=== PATIENT | female | born 1955 | race Caucasian/White ===

== ENCOUNTER 2020-01-29 14:10 | Inpatient (IN) | payer OTHER, SELFPAY ==
[~2020-01-29] VITALS: Ht 165.1 cm; Wt 76.2 kg
[~2020-01-29 14:10] MED LIST: GABA300C PO; METF1000 PO
[2020-01-29 14:20] VITALS: BP 145/81
--- NOTE | 2020-01-29 14:22 | NUR ---
PATIENT AMBULATED TO ER BED 01
--- NOTE | 2020-01-29 14:30 | NUR ---
PT C/O PRODUCTIVE COUGH, CHEST CONGESTION, GENERALIZED WEAKNESS, BODY ACHES, FATIGUE, N/V/D, ABDOMINAL PAIN, SOB FOR 8 DAYS. DENIES CLOSELY CONTACTED WITH COVID. STATES HAVING 9/10 ABDOMINAL/HEAD PAIN AT THIS TIME. PMH: DM, HTN
[2020-01-29] MEDS ORDERED: LEVOFLOXACIN 500 MG/D5W PREMIX 100 ML IV ONE (14:50)
[2020-01-29] MEDS ORDERED: KETOROLAC 30 MG/ML VIAL IVP ONE (14:50)
[2020-01-29] MEDS ORDERED: NACL 0.9% 1,000 ML IV SCH (14:50)
[2020-01-29] MEDS ORDERED: ONDANSETRON 4 MG/2 ML VIAL IVP ONE (14:50)
--- NOTE | 2020-01-29 15:10 | NUR ---
LABS/UA COLLECTED AND SENT TO LAB
--- NOTE | 2020-01-29 15:20 | NUR ---
DAVID AND PCR COLLECTED AND SENT TO LAB
--- NOTE | 2020-01-29 16:00 | NUR ---
PT AMBULATED TO BEDSIDE COMMODE. BRIDGE OPERATOR/PULSE OX/2L NC IN PLACE. PT PLACED BACK IN BED, LOCKED AND IN LOWEST POSITION. SIDE RAILS X1.
[2020-01-29 16:04] LABS: HEMATOCRIT 48.5 % (36-48); HEMOGLOBIN 16.2 g/dL (12.0-16.0); MEAN CORPUSCULAR HEMOGLOBIN 29 pg (27-31); MEAN CORPUSCULAR HGB CONC 34 g/dL (33-37); MEAN CORPUSCULAR VOLUME 86.1 fL (80-94); MONOCYTES % (AUTO) 6.7 % (1.7-9.3); NEUTROPHILS % (AUTO) 78.7 % (42.2-75.2); PLATELET COUNT (AUTO) 215 K/uL (140-450); RED BLOOD CELL COUNT(AUTO) 5.63 MIL/uL (4.20-5.40); RED CELL DISTRIBUTION WIDTH 14.1 % (11.6-13.7); WHITE BLOOD COUNT (AUTO) 7.1 K/uL (4.8-10.8)
[2020-01-29 16:05] LABS: BASOPHILS % (AUTO) 0.2 % (0.0-2.0); EOSINOPHILS % (AUTO) 0.4 % (0.0-4.0); LYMPHOCYTES # (AUTO) 0.9 K/uL (2.5-16.5); MONOCYTES # (AUTO) 0.5 K/uL (0.8-1.0); NEUTROPHILS # (AUTO) 5.7 K/uL (1.8-7.7)
[2020-01-29] MEDS: LEVOFLOXACIN 500 MG/D5W PREMIX 100 ML IV SCH (16:50)
[2020-01-29] MEDS ORDERED: MAGNESIUM OXIDE 400 MG TAB PO PRN (16:50)
[2020-01-29] MEDS ORDERED: MAG SULF 2000 MG/WATER PREMIX 50 ML IV PRN (16:50)
[2020-01-29] MEDS ORDERED: POTASSIUM CHLORIDE 10 MEQ TABER PO PRN (16:50)
[2020-01-29] MEDS ORDERED: KCL 20 MEQ/WATER INJ PREMIX 200 ML IV PRN (16:50)
[2020-01-29] MEDS ORDERED: MORPHINE SULFATE 4 MG/ML SYR IVP PRN (16:50)
[2020-01-29] MEDS ORDERED: MORPHINE SULFATE 4 MG/ML SYR ONE (16:57)
[2020-01-29] MEDS ORDERED: DEXTROSE 50% 50 ML SYR IVP PRN (17:00)
[2020-01-29] MEDS ORDERED: MORPHINE SULFATE 4 MG/ML SYR IVP ONE (17:00)
--- NOTE | 2020-01-29 17:00 | NUR ---
PT STATES THAT SHE IS HAVING 8/10 DOMINGO AND DIFFUSE ABDOMINAL PAIN AND SHE NEEDS FURTHER PAIN MANAGEMENT. MD MADE AWARE.
[2020-01-29] MEDS: NACL 0.9% 1,000 ML IV SCH (17:19)
[2020-01-29 17:31] LABS: APPEARANCE,URINE YELLOW (CLEAR); BILIRUBIN,URINE NEGATIVE (NEGATIVE); BLOOD, URINE NEGATIVE (NEGATIVE); COLOR,URINE HAZY (YELLOW); LEUKOCYTE ESTERASE ,URINE NEGATIVE (NEGATIVE); NITRITE, URINE NEGATIVE (NEGATIVE); PH,URINE 5.5 (5.0-9.0); UGLUCOSE NEGATIVE (NEGATIVE)
[2020-01-29 17:36] LABS: ANION GAP 9.9 (8-16); CARBON DIOXIDE 28.9 mmol/L (21-32); CREATININE 0.8 mg/dL (0.6-1.3); POTASSIUM 3.8 mmol/L (3.5-5.1)
[2020-01-29 17:42] LABS: ALBUMIN 2.9 g/dL (3.4-5.0); TOTAL BILIRUBIN 0.5 mg/dL (0.0-1.0)
--- NOTE | 2020-01-29 18:20 | NUR ---
PT EATING DINNER SITTING UP IN BED. CALL LIGHT LEFT WITHIN REACH.
--- NOTE | 2020-01-29 19:19 | NUR ---
REPORT RECEIVED FROM LUIS ANG FOR CONTINUATION OF CARE.
--- NOTE | 2020-01-29 19:20 | NUR ---
REPORT GIVEN TO LUIS QUARLES. TRANSFER OF CARE AT THIS TIME.
--- NOTE | 2020-01-29 19:51 | NUR ---
CALLED LUIS BATRES TO GIVE REPORT FOR TRANSFER OF CARE TO THE TELE FLOOR
[2020-01-29] MEDS ORDERED: LISI-420 PO (19:57)
--- NOTE | 2020-01-29 20:20 | NUR ---
Patient will be admitted to care of DR. MEJIAS. Admited to TELEMETRY. Will go to room 102B. Belongings list completed. Report to LUIS BATRES.
--- NOTE | 2020-01-29 20:20 | NUR ---
RECEIVED REPORT FROM ER NURSE, WILLAM. PT ON TELE, AOX4 ON O2 3L N/C. NO S/S RESPIRATORY DISTRESS. HAS NAUSEA AND ABD PAIN 8/10. WILL MEDICATE WITH PRN PAIN AND NAUSEA MEDICATION. IV SITE 18G LAC, PATENT AND INTACT. SKIN WARM DRY INTACT. BOWEL SOUNDS ACTIVE. SAFETY PRECAUTIONS IN PLACE. DROPLET PRECAUTION IN PLACE. CALL LIGHT WITHIN REACH. WILL CONTINUE TO MONITOR. VS: TEMP 98.3 RR 24 O2 SAT 96% BP 102/66 HR 74
[2020-01-29 20:30] VITALS: BP 102/66
[2020-01-29] MEDS: ONDANSETRON 4 MG/2 ML VIAL IVP PRN (20:57)
--- NOTE | 2020-01-29 20:57 | NUR ---
PT C/O NAUSEA. ADMINISTERED PRN ZOFRAN. TOLERATED WELL. WILL CONTINUE TO MONITOR
--- NOTE | 2020-01-29 21:00 | NUR ---
ORIENTED PT TO HOSPITAL AND ROOM. PT AMBULATED TO TOILET AND BACK TO BED WITH STEADY GAIT AND STANDBY ASSIST. PT TOLERATED WELL. WILL CONTINUE TO MONITOR
[2020-01-29] MEDS: BLOOD GLUCOSE MONITORING 1 DEV DEV FS SCH (21:02)
[2020-01-29] MEDS: INSULIN LISPRO SLIDING SCALE 100 UNITS/ML VIAL SUBQ PRN (21:12)
--- NOTE | 2020-01-29 21:15 | NUR ---
ADMINISTERED 2 UNITS INSULIN FOR PT BLOOD SUGAR 180 PER SLIDING SCALE. TOLERATED WELL. WILL CONTINUE TO MONITOR
--- NOTE | 2020-01-29 23:30 | NUR ---
PT ASLEEP IN BED. RESPIRATIONS EVEN AND UNLABORED. NO DISTRESS NOTED. WILL CONTINUE TO MONITOR
[2020-01-29] MEDS: ACETAMINOPHEN 325 MG TAB PO PRN (23:42)
[2020-01-30 01:15] VITALS: BP 118/65
--- NOTE | 2020-01-30 02:49 | NUR ---
PT AWAKE IN BED. DENIES PAIN. DENIES NAUSEA. NO DISTRESS NOTED. WILL CONTINUE TO MONITOR
[2020-01-30 04:00] VITALS: BP 125/69
[2020-01-30] MEDS: NACL 0.9% 1,000 ML IV SCH ×2 (05:24→18:09)
[2020-01-30] MEDS: BLOOD GLUCOSE MONITORING 1 DEV DEV FS SCH ×4 (05:46→20:24)
[2020-01-30] MEDS: INSULIN LISPRO SLIDING SCALE 100 UNITS/ML VIAL SUBQ PRN ×4 (06:12→20:27)
--- NOTE | 2020-01-30 06:26 | NUR ---
ADMINISTERED 2 UNITS INSULIN FOR PT BLOOD SUGAR 154, TOLERATED WELL
--- NOTE | 2020-01-30 07:10 | NUR ---
ENDORSED PT TO DAY RN FOR CONTINUITY OF CARE. PT IS IN STABLE CONDITION
--- NOTE | 2020-01-30 07:15 | NUR ---
RECEIVED PT FROM ELECTRICAL LOGGING OPERATOR NURSE, PT IS RESTING IN BED, NC @ 3L, IV NOTED OT LAC 18G @ 80ML/HR, CONTINENT, SAFETY AND FALL PRECAUTIONS IN PLACE, WILL CONTINUE TO MONITOR.
[2020-01-30 08:00] VITALS: BP 140/87
[2020-01-30 08:23] LABS: ALBUMIN 2.1 g/dL (3.4-5.0); ANION GAP 13.1 (8-16); CARBON DIOXIDE 24.7 mmol/L (21-32); CREATININE 0.6 mg/dL (0.6-1.3); MAGNESIUM 1.9 mg/dL (1.8-2.4); POTASSIUM 3.8 mmol/L (3.5-5.1); TOTAL BILIRUBIN 0.4 mg/dL (0.0-1.0)
[2020-01-30] MEDS: DEXAMETHASONE 4 MG/ML VIAL IVP SCH (08:46)
[2020-01-30] MEDS: DOCUSATE SODIUM 100 MG GELCAP PO SCH (08:46)
[2020-01-30] MEDS: ENOXAPARIN 40 MG/0.4 ML SYR SUBQ SCH (08:50)
[2020-01-30 09:08] LABS: BASOPHILS % (AUTO) 0.2 % (0.0-2.0); EOSINOPHILS % (AUTO) 0.5 % (0.0-4.0); HEMOGLOBIN 14.1 g/dL (12.0-16.0); LYMPHOCYTES # (AUTO) 0.8 K/uL (2.5-16.5); LYMPHOCYTES % (AUTO) 10.4 % (20.5-51.1); MEAN CORPUSCULAR HEMOGLOBIN 29 pg (27-31); MEAN CORPUSCULAR HGB CONC 34 g/dL (33-37); MEAN CORPUSCULAR VOLUME 87.6 fL (80-94); MONOCYTES # (AUTO) 0.4 K/uL (0.8-1.0); MONOCYTES % (AUTO) 4.4 % (1.7-9.3); NEUTROPHILS # (AUTO) 6.9 K/uL (1.8-7.7); NEUTROPHILS % (AUTO) 84.5 % (42.2-75.2); PLATELET COUNT (AUTO) 166 K/uL (140-450); RED BLOOD CELL COUNT(AUTO) 4.79 MIL/uL (4.20-5.40); RED CELL DISTRIBUTION WIDTH 14.3 % (11.6-13.7); WHITE BLOOD COUNT (AUTO) 8.1 K/uL (4.8-10.8)
[2020-01-30] MEDS: ACETAMINOPHEN 325 MG TAB PO PRN (09:16)
[2020-01-30] MEDS: ONDANSETRON 4 MG/2 ML VIAL IVP PRN (09:17)
--- NOTE | 2020-01-30 09:17 | NUR ---
PT WAS GIVEN THE SCHEDULED AM MEDICATIONS, VIA ORAL, SUBQ AND IV PUSH, NAUSEA MEDICATION WAS GIVEN WELL, TOLERATED, V/S CHECKED, PT WAS ASSISTED TO BATHROOM AND BACK TO BED, SERVED BREAKFAST TRAY, ALL NEEDS ARE MET AT THIS TIME, WILL CONTINUE TO MONITOR PT.
--- NOTE | 2020-01-30 11:40 | NUR ---
2 UNITS INSULIN ADMINISTERED FOR 199 BS LEVEL, PT IS RESTING IN BED, CALL LIGHT WITHIN REACH, PT REPORTS IMPROVEMENT IN NAUSEA AND HEADACHE, WILL CONTINUE TO MONITOR.
[2020-01-30 12:00] VITALS: BP 121/62
--- NOTE | 2020-01-30 13:15 | NUR ---
PT IS RESTING IN BED, NO SIGNS OF DISTRESS NOTED, WILL CONTINUE TO MONITOR.
--- NOTE | 2020-01-30 14:50 | NUR ---
HELPED PT TO THE RESTROOM, LOOSE BROWN STOOL NOTED, PT STATED SHE HAD NOT USED THE RESTROOM FOR 3 DAYS DUE TO LACK OF MOTIVATION TO EAT, PT IS NOW BACK IN BED, 2 SUGAR FREE JELLOS WERE PROVIDED TO PER PT REQUEST, NO SIGNS OF DISTRESS NOTED, WILL CONTINUE TO MONITOR.
[2020-01-30 16:00] VITALS: BP 141/74
--- NOTE | 2020-01-30 16:10 | NUR ---
PT WAS ASSISTED TO BATHROOM AND BACK TO BED, MADE A BOWEL MOVEMENT, INSULIN 6 UNITS WAS GIVEN TO PT ON THE RT UA FOR BLOOD GLUCOSE OF 265, ALL NEEDS ARE MET AND WILL MONITOR PT.
[2020-01-30] MEDS: LEVOFLOXACIN 500 MG/D5W PREMIX 100 ML IV SCH (16:29)
--- NOTE | 2020-01-30 16:30 | NUR ---
SCHEDULED ANTIBIOTIC ADMINISTERED, PT HAD ANOTHER LOOSE BOWEL MOVEMENT, NO SIGNS OF DISTRESS NOTED, WILL CONTINUE TO MONITOR.
--- NOTE | 2020-01-30 18:10 | NUR ---
PT IS AWAKE IN BED, ADMINISTERED NEW NS @ 80ML/HR, NO SIGNS OF DISTRESS, WILL CONTINUE TO MONITOR PT.
--- NOTE | 2020-01-30 18:15 | NUR ---
PT WAS ASSISTED TO GO TO THE BATHROOM AND BACK TO BED, PT IS WEAK BUT DENIES PAIN,DINNER TRAY WAS SERVED,WILL MONITOR PT
--- NOTE | 2020-01-30 19:10 | NUR ---
ENDORSED PT TO SENIOR SUPPORT ENGINEER NURSE FOR CONTINUITY OF CARE.
--- NOTE | 2020-01-30 19:11 | NUR ---
RECEIVED PT FROM DAY RN, PT IS ROMANSH SPEAKING. AAOX4 AMBULATORY WITH ASSIST. ABLE TO MAKE NEEDS KNOWN. PT IS RESTING IN BED. RESPIRATIONS ARE EQUAL AND UNLABORED ON NC @ 4L, IV NOTED OT LAC 18G NS INFUSING AT 80ML/HR, CONTINENT, SKIN IS INTACT. ON DROPLET ISOLATION FOR COVID + WAITING FOR PCR RESULTS. SAFETY AND FALL PRECAUTIONS IN PLACE, POC DISCUSSED WITH PT. WILL CONTINUE TO MONITOR.
--- NOTE | 2020-01-30 20:24 | NUR ---
VITAL SIGNS ARE STABLE. BLOOD SUGAR 245 ADMINISTERED INSULIN PER SLIDING SCALE. POC DISCUSSED WITH PT. MED EDUCATION GIVEN. CALL LIGHT IS WITHIN REACH.
[2020-01-30 20:49] VITALS: BP 122/51
--- NOTE | 2020-01-30 22:00 | NUR ---
ROUNDS MADE. PT IS SLEEPING COMFORTABLY IN BED WITH EYES CLOSED. CHEST RISE AND FALL NOTED. CALL LIGHT IS WITHIN REACH.
--- NOTE | 2020-01-31 | NUR ---
ROUNDS MADE. PT RESTING COMFORTABLY IN BED NO S/S OF DISTRESS. CALL LIGHT IS WITHIN REACH.
--- NOTE | 2020-01-31 01:59 | NUR ---
PT IS SLEEPING COMFORTABLY IN BED WITH EYES CLOSED. CHEST RISE AND FALL NOTED. CALL LIGHT IS WITHIN REACH.
--- NOTE | 2020-01-31 03:15 | NUR ---
ASSISTED PT TO BATHROOM. PT TOLERATED WELL. CALL LIGHT IS WITHIN REACH.
--- NOTE | 2020-01-31 04:00 | NUR ---
VITAL SIGNS ARE WITHIN NORMAL LIMITS. ALL SAFETY MEASURES ARE IN PLACE. CALL LIGHT IS WITHIN REACH.
[2020-01-31] MEDS ORDERED: remdesivir COMMUNICATION ORDER 1 EA MISC MC PRN (04:05)
[2020-01-31 05:13] VITALS: BP 130/74
--- NOTE | 2020-01-31 05:30 | NUR ---
OBTAINED CONSENT FOR CONVALESCENT PLASMA. EDUCATED PT ON REASON AND POSSIBLE ADVERSE REACTIONS. PT VERBALIZED UNDERSTANDING. DENIES ANY FURTHER CONCERNS. CONSENT IN CHART.
[2020-01-31] MEDS: BLOOD GLUCOSE MONITORING 1 DEV DEV FS SCH ×4 (06:07→21:09)
[2020-01-31] MEDS: NACL 0.9% 1,000 ML IV SCH ×2 (06:07→18:52)
[2020-01-31] MEDS: INSULIN LISPRO SLIDING SCALE 100 UNITS/ML VIAL SUBQ PRN ×4 (06:08→21:08)
--- NOTE | 2020-01-31 06:08 | NUR ---
BLOOD SUGAR 185 ADMINISTERED INSULIN PER SLIDING SCALE. SNACK AT BEDSIDE. ALL SAFETY MEASURES ARE IN PLACE.
--- NOTE | 2020-01-31 07:25 | NUR ---
GAVE BEDSIDE REPORT TO DAY RN. PT ENDORSED IN STABLE CONDITION.
[2020-01-31 08:00] VITALS: BP 132/67
[2020-01-31 08:25] LABS: BASOPHILS % (AUTO) 0.1 % (0.0-2.0); HEMATOCRIT 41.5 % (36-48); HEMOGLOBIN 13.8 g/dL (12.0-16.0); LYMPHOCYTES # (AUTO) 0.8 K/uL (2.5-16.5); LYMPHOCYTES % (AUTO) 6.9 % (20.5-51.1); MEAN CORPUSCULAR HEMOGLOBIN 29 pg (27-31); MEAN CORPUSCULAR HGB CONC 33 g/dL (33-37); MEAN CORPUSCULAR VOLUME 87.1 fL (80-94); MONOCYTES # (AUTO) 0.5 K/uL (0.8-1.0); MONOCYTES % (AUTO) 4.6 % (1.7-9.3); NEUTROPHILS # (AUTO) 9.8 K/uL (1.8-7.7); NEUTROPHILS % (AUTO) 88.4 % (42.2-75.2); PLATELET COUNT (AUTO) 211 K/uL (140-450); RED BLOOD CELL COUNT(AUTO) 4.77 MIL/uL (4.20-5.40); RED CELL DISTRIBUTION WIDTH 14.2 % (11.6-13.7); WHITE BLOOD COUNT (AUTO) 11.1 K/uL (4.8-10.8)
--- NOTE | 2020-01-31 08:36 | NUR ---
PATIENT HAS BEEN SCREENED AND CATEGORIZED HIGH NUTRITION RISK. PATIENT WILL BE SEEN WITHIN 1-2 DAYS OF ADMISSION. 01/31/[address]
[2020-01-31 08:50] LABS: ALBUMIN 2.1 g/dL (3.4-5.0); ANION GAP 10.2 (8-16); CARBON DIOXIDE 28.7 mmol/L (21-32); CREATININE 0.6 mg/dL (0.6-1.3); POTASSIUM 3.9 mmol/L (3.5-5.1); TOTAL BILIRUBIN 0.3 mg/dL (0.0-1.0)
[2020-01-31] MEDS: DOCUSATE SODIUM 100 MG GELCAP PO SCH (09:00)
[2020-01-31] MEDS: DEXAMETHASONE 4 MG/ML VIAL IVP SCH (09:18)
[2020-01-31] MEDS: lisinopriL 20 MG TAB PO SCH (09:18)
[2020-01-31] MEDS: ENOXAPARIN 40 MG/0.4 ML SYR SUBQ SCH (09:25)
[2020-01-31] MEDS ORDERED: CLINICAL MONITORING MC PRN (10:30)
[2020-01-31] MEDS ORDERED: REMDESIVIR (EUA) 200 MG in NACL 0.9% 100 ML IV SCH (12:00)
--- NOTE | 2020-01-31 12:21 | NUR ---
BLOOD GLUCOSE LEVEL 235. WILL ADMINISTER INSULIN WHEN AVAILABLE
--- NOTE | 2020-01-31 13:08 | NUR ---
FIRST DOSE OF REMDESIVIR GIVEN VIA IVPB. 4 UNITS OF HUMALOG GIVEN FOR BLOOD GLUCOSE LEVEL 235. EDUCATION PROVIDED. PATIENT TOLERATED WELL. PATIENT IN SITTING POSITION HAVING LUNCH. NO ACUTE DISTRESS NOTED AT THIS TIME. SAFETY MEASURES IN PLACE, WILL CONTINUE TO MONITOR.
--- NOTE | 2020-01-31 13:19 | NUR ---
SOCIAL WORK NOTE: Patient's Orientation Unable To Assess Information Provided By CHERI BENÍTEZ - SON Comments SW WAS UNABLE TO MEET PATIENT AT BEDSIDE DUE TO MEDICAL CONDITION. SW COMPLETED ASSESSMENT WITH PATIENT'S SON. Poultry Husbandry Worker, Realtionship and Phone Number CHERI VIVEROS [phone] NANI VIVEROS [phone] Healthcare Power of Motocross Racer No Does Patient Have a POLST No Identifying Problems No Social Work Triggers Is A Social Work Consult Needed No Mandate Report Filed No Explanation Of Identifying Problems PATIENT IS A 64-YEAR-OLD FEMALE ADMITTED FOR ACUTE HYPOXIA AND RESPIRATORY FAILURE. PATIENT HAS PMHX OF DIABETES AND HYPERTENSION. PATIENT'S SON REPORTED NO MENTAL HEALTH HISTORY OR SUBSTANCE ABUSE. Admitted From Home Pre-Admission Level Of Functioning Status Independent/Ambulatory Prior Resources/Services Used In Last 12 Months No Prior Resources Used Prior DME No Prior DME Used Dialysis Comments N/A Living Situation Lives With Family House Other Living Situation/Comment PATIENT'S SON REPORTED THAT PATIENT LIVES WITH AND CHILDREN. Patient Had Caregiver No Home Support No Caregiver Issues Financial Issues No Known Financial Issue Referral To The Financial Counselor Needed No Factors/Needs No D/C Needs Identified Explanation And Or Other Factors Affecting/Possible DC Needs PATIENT'S SON STATED THEY WOULD PROVIDE TRANSPORTATION TO PATIENT HOME. Pt/Rep Participated In Discharge Plan Yes Patient/Family Agress With Discharge Plan Yes Discharge Plan Comments TENTATIVE DISCHARGE PLAN IS FOR PATIENT TO RETURN HOME. DC Plan Status Initiated Addendum: 02/03/20 at 0859 by Bong KATZ JODI RECEIVED ORDERS FOR HOME O2. JODI FAXED PHYSICIANS ORDERS TO [facility].
--- NOTE | 2020-01-31 15:13 | NUR ---
01/31/20 RD INITIAL ASSESSMENT COMPLETED PLEASE REFER TO NUTRITION ASSESSMENT UNDER CARE ACTIVITY FOR ESTIMATED NUTRITIONAL NEEDS. 1. CONTINUE CCHO 60GM DIET TOLERATED 2. RECOMMEND GLUCERNA TID 3. ENCOURAGE PO INTAKE 4. RD TO FOLLOW-UP 3-5 DAYS, MODERATE RISK MINO BENNETT, RD
[2020-01-31 16:00] VITALS: BP 144/57
--- NOTE | 2020-01-31 17:17 | NUR ---
8 UNITS OF HUMALOG GIVEN FOR BLOOD GLUCOSE LEVEL 331. PATIENT RESTING IN BED, WITH 3L NC. WITH NO ACUTE DISTRESS NOTED. SAFETY MEASURES IN PLACE, CALL LIGHT WITHIN REACH. WILL CONTINUE TO MONITOR.
--- NOTE | 2020-01-31 19:20 | NUR ---
ENDORSED PATIENT TO CHAUFFEUR AIRPORT LIMOUSINE RN FOR CONTINUITY OF CARE. PATIENT IN STABLE CONDITION WITH 3L NC.
--- NOTE | 2020-01-31 19:20 | NUR ---
RECEIVED PT AAOX4 , NID - O2 SAT WNL . IV SITE INTACT AND PATENT . SAFETY MEASURES IN PLACE . PLAN OF CARE DISCUSSED AND VERBALIZED UNDERSTANDING . FOR CONVALESCENT PLASMA . WILL CONT. TO MONITOR .
[2020-01-31 20:00] VITALS: BP 141/62
[2020-01-31] MEDS: ACETAMINOPHEN 325 MG TAB PO PRN (21:06)
--- NOTE | 2020-02-01 | NUR ---
MADE ROUNDS , NO S/SX OF CAUTE DISTRESS NOTED .
--- NOTE | 2020-02-01 04:00 | NUR ---
MADE ROUNDS , NO S/SX OF ACUTE DISTRESS NOTED .
[2020-02-01] MEDS: BLOOD GLUCOSE MONITORING 1 DEV DEV FS SCH ×4 (05:11→20:40)
[2020-02-01] MEDS: NACL 0.9% 1,000 ML IV SCH (05:11)
[2020-02-01 06:32] VITALS: BP 124/73
[2020-02-01] MEDS: INSULIN LISPRO SLIDING SCALE 100 UNITS/ML VIAL SUBQ PRN ×4 (06:43→20:29)
[2020-02-01 08:00] VITALS: BP 149/62
[2020-02-01 08:08] LABS: BASOPHILS % (AUTO) 0.4 % (0.0-2.0); EOSINOPHILS % (AUTO) 0.1 % (0.0-4.0); HEMATOCRIT 42.6 % (36-48); LYMPHOCYTES % (AUTO) 11.2 % (20.5-51.1); MEAN CORPUSCULAR HEMOGLOBIN 29 pg (27-31); MEAN CORPUSCULAR HGB CONC 33 g/dL (33-37); MEAN CORPUSCULAR VOLUME 87.7 fL (80-94); MONOCYTES # (AUTO) 0.5 K/uL (0.8-1.0); MONOCYTES % (AUTO) 5.1 % (1.7-9.3); NEUTROPHILS # (AUTO) 7.7 K/uL (1.8-7.7); NEUTROPHILS % (AUTO) 83.2 % (42.2-75.2); PLATELET COUNT (AUTO) 242 K/uL (140-450); RED BLOOD CELL COUNT(AUTO) 4.86 MIL/uL (4.20-5.40); WHITE BLOOD COUNT (AUTO) 9.3 K/uL (4.8-10.8)
--- NOTE | 2020-02-01 08:14 | NUR ---
ENDORSED - PT - STABLE
--- NOTE | 2020-02-01 08:19 | NUR ---
RECEIVED ENDORSEMENT FROM NIGHTSHIFT NURSE. PT RESTING IN BED. ABLE TO MAKE NEEDS KNOWN. RESPIRATIONS EVEN AND UNLABORED WITH NO SOB OR RESPIRATORY DISTRESS. SKIN WARM AND DRY TO TOUCH. IV SITE IN LAC 18G IS CLEAN, DRY, AND INTACT. SAFETY MEASURES IN PLACE. WILL CONTINUE TO MONITOR
[2020-02-01 08:45] LABS: ALBUMIN 2.2 g/dL (3.4-5.0); ANION GAP 11.9 (8-16); CREATININE 0.6 mg/dL (0.6-1.3); MAGNESIUM 2.1 mg/dL (1.8-2.4); POTASSIUM 3.9 mmol/L (3.5-5.1); TOTAL BILIRUBIN 0.3 mg/dL (0.0-1.0)
[2020-02-01] MEDS: DOCUSATE SODIUM 100 MG GELCAP PO SCH (09:15)
[2020-02-01] MEDS: lisinopriL 20 MG TAB PO SCH (09:15)
[2020-02-01] MEDS: DEXAMETHASONE 4 MG/ML VIAL IVP SCH (09:16)
[2020-02-01] MEDS: ENOXAPARIN 40 MG/0.4 ML SYR SUBQ SCH (09:16)
--- NOTE | 2020-02-01 09:33 | NUR ---
ADMINISTERED SCHED MED PRESCRIBED PER MD ORDER. PT TOLERATED WELL. MEDICATION EDUCATION PERFORMED. PT VERBALIZED UNDERSTANDING. SAFETY MEASURES IN PLACE. WILL CONTINUE TO MONITOR
[2020-02-01] MEDS ORDERED: remdesivir CLINICAL MONITORING 1 EA MISC MC PRN (11:05)
--- NOTE | 2020-02-01 11:30 | NUR ---
PT BLOOD SUGAR IS 191. PRN INSULIN WILL BE ADMINISTERED PRESCRIBED PER MD ORDER. SAFETY MEASURES IN PLACE WILL CONTINUE TO MONITOR.
--- NOTE | 2020-02-01 12:15 | NUR ---
ADMINISTERED PRN INSULIN PRESCRIBED PER MD ORDER. PT TOLERATED WELL. MEDICATION EDUCATION PERFORMED. PT VERBALIZED UNDERSTANDING. SAFETY MEASURES IN PLACE. WILL CONTINUE TO MONITOR
[2020-02-01] MEDS: REMDESIVIR (EUA) 100 MG in NACL 0.9% 100 ML IV SCH (12:25)
--- NOTE | 2020-02-01 13:22 | NUR ---
ADMINISTERED SCHEDULED MEDS PER MD ORDER. PATIENT TOLERATED WELL. MEDICATION EDUCATION REINFORCEMENT NEEDED DUE TO LANGUAGE BARRIER. SAFETY MEASURES IN PLACE. WILL CONT TO MONITOR.
--- NOTE | 2020-02-01 15:00 | NUR ---
OBTAINED CONSENT FOR PLASMA FROM DR. WATSON. CONSENT IS COMPLETE. LET BLOOD BANK KNOW THAT CONSENT IS SIGNED AND READY FOR PLASMA. WILL CONTINUE TO MONITOR
[2020-02-01 16:00] VITALS: BP 131/50
--- NOTE | 2020-02-01 16:30 | NUR ---
PT BLOOD SUGAR IS 318. PRN INSULIN WILL BE ADMINISTERED PRESCRIBED PER MD ORDER. PT TOLERATED WELL. WILL CONTINUE TO MONITOR
--- NOTE | 2020-02-01 17:29 | NUR ---
ADMINISTERED 8 UNITS INSULIN PER MD ORDER. PATIENT TOLERATED WELL. SAFETY MEASURES IN PLACE. WILL CONT TO MONITOR.
--- NOTE | 2020-02-01 18:10 | NUR ---
ADMINISTERED BLOOD PLASMA. BEG VS: TEMP 98.1, PULSE 60, RESP 17, BP 149/65, PATIENT DENIES PAIN. SAFETY MEASURES IN PLACE. WILL CONT TO MONITOR.
--- NOTE | 2020-02-01 18:35 | NUR ---
F/U ON BLOOD PLASMA TRANSFUSION. V/S: TEMP 98.4, PULSE 76, RESP 17, BP 150/56. PATIENT DENIES PAIN. SAFETY MEASURES IN PLACE. WILL CONT TO MONITOR.
--- NOTE | 2020-02-01 19:24 | NUR ---
ENDORSED TO NIGHTSHIFT NURSE FOR CONTINUITY OF CARE. PT IS STABLE
--- NOTE | 2020-02-01 19:25 | NUR ---
RECEIVED PT ON BED, AAOX4, NO RESP DISTRESS NOTED, ON O2 3L NC, CONVALESCENT PLASMA TRANSFUSING AT THIS TIME, NO REACTIONS NOTED, SAFETY MEASURES IN PLACE, MAINTAINED ON DROPLET PRECAUTION FOR COVID POSITIVE, CALL LIGHT IN PLACE.
--- NOTE | 2020-02-01 19:50 | NUR ---
1 UNIT CONVALESCENT PLASMA DONE, VITAL SIGNS STABLE, NO REACTION NOTED, IV LINE SALINE LOCK, ALL NEEDS ATTENDED, CALL LIGHT WITHIN REACH.
[2020-02-01 20:00] VITALS: BP 129/66
[2020-02-01] MEDS: HYDROcodone/APAP 5/325 MG 1 TAB TAB PO PRN (20:29)
--- NOTE | 2020-02-01 20:30 | NUR ---
BLOOD SUGAR CHECKED WITH 198 RESULT, COVERAGE GIVEN, SNACK PROVIDED, MEDICATED WITH NORCO FOR HEADACHE, ALL NEEDS ATTENDED.
[2020-02-02] MEDS: HYDROcodone/APAP 5/325 MG 1 TAB TAB PO PRN (01:33)
--- NOTE | 2020-02-02 01:35 | NUR ---
ASSISTED TO BR BY RIGGING LOFT MECHANIC, AMBULATORY WITH STEADY GAIT, VOIDED FREELY, MEDICATED PRN FOR HEADACHE WITH NORCO, MONITORED CLOSELY.
[2020-02-02 04:00] VITALS: BP 136/64
--- NOTE | 2020-02-02 04:00 | NUR ---
PT SLEEPING, NO SIGNS OF DISTRESS, MONITORED CLOSELY.
[2020-02-02] MEDS: INSULIN LISPRO SLIDING SCALE 100 UNITS/ML VIAL SUBQ PRN ×4 (05:58→20:46)
[2020-02-02] MEDS: BLOOD GLUCOSE MONITORING 1 DEV DEV FS SCH ×4 (06:39→20:47)
--- NOTE | 2020-02-02 07:14 | NUR ---
PT SLEEPING, NO SIGNS OF DISTRESS, REPORT GIVEN TO LUIS NEIL FOR CONTINUITY OF CARE.
--- NOTE | 2020-02-02 07:15 | NUR ---
RECEIVED REPORT FROM NIGHTSHIFT NURSE. PT RESTING IN BED. ABLE TO MAKE NEEDS KNOWN. RESPIRATIONS EVEN AND UNLABORED WITH NO SOB OR RESPIRATORY DISTRESS. SKIN WARM AND DRY TO TOUCH. IV SITE IN LAC 18G IS CLEAN, DRY, AND INTACT. SAFETY MEASURES IN PLACE. WILL CONTINUE TO MONITOR
[2020-02-02 08:00] VITALS: BP 124/78
[2020-02-02] MEDS: ENOXAPARIN 40 MG/0.4 ML SYR SUBQ SCH (08:18)
[2020-02-02] MEDS: lisinopriL 20 MG TAB PO SCH ×2 (08:19→08:43)
[2020-02-02] MEDS: DOCUSATE SODIUM 100 MG GELCAP PO SCH (08:19)
[2020-02-02] MEDS: DEXAMETHASONE 4 MG/ML VIAL IVP SCH (08:21)
[2020-02-02 08:23] LABS: BASOPHILS # (AUTO) 0.1 K/uL (0.00-0.22); BASOPHILS % (AUTO) 1.2 % (0.0-2.0); EOSINOPHILS % (AUTO) 0.3 % (0.0-4.0); HEMATOCRIT 41.6 % (36-48); LYMPHOCYTES % (AUTO) 14.2 % (20.5-51.1); MEAN CORPUSCULAR HEMOGLOBIN 29 pg (27-31); MEAN CORPUSCULAR HGB CONC 34 g/dL (33-37); MEAN CORPUSCULAR VOLUME 86.3 fL (80-94); MONOCYTES # (AUTO) 0.6 K/uL (0.8-1.0); NEUTROPHILS # (AUTO) 5.5 K/uL (1.8-7.7); NEUTROPHILS % (AUTO) 76.3 % (42.2-75.2); PLATELET COUNT (AUTO) 272 K/uL (140-450); RED BLOOD CELL COUNT(AUTO) 4.82 MIL/uL (4.20-5.40); RED CELL DISTRIBUTION WIDTH 14.3 % (11.6-13.7); WHITE BLOOD COUNT (AUTO) 7.2 K/uL (4.8-10.8)
[2020-02-02 08:30] LABS: ALBUMIN 2.3 g/dL (3.4-5.0); ANION GAP 9.8 (8-16); CARBON DIOXIDE 32.3 mmol/L (21-32); CREATININE 0.6 mg/dL (0.6-1.3); MAGNESIUM 2.1 mg/dL (1.8-2.4); POTASSIUM 4.1 mmol/L (3.5-5.1); TOTAL BILIRUBIN 0.4 mg/dL (0.0-1.0)
--- NOTE | 2020-02-02 08:30 | NUR ---
ADMINISTERED SCHED MED PRESCRIBED PER MD ORDER. PT TOLERATED WELL. MEDICATION EDUCATION PERFORMED. PT VERBALIZED UNDERSTANDING. SAFETY MEASURES IN PLACE. WILL CONTINUE TO MONITOR
--- NOTE | 2020-02-02 10:15 | NUR ---
PT WANTS TO WEAN OFF OXYGEN. HAD PATIENT UP AND AMBULATE TO BATHROOM WITHOUT OXYGEN AND COME BACK. PT O2 AT 81% ON ROOM AIR. PLACED PT BACK ON 2L NC. WILL CONTINUE TO MONITOR
--- NOTE | 2020-02-02 11:19 | NUR ---
PT COMPLAINED OF PAIN. OBTAINED NORCO PER MD ORDER. PT SAID SHE DOES NOT WANT NORCO. WASTED WITH SECOND NURSE SUPPLY CHAIN DESIGN MANAGER. WILL ADMINISTER TYLENOL. WILL CONTINUE TO MONITOR
--- NOTE | 2020-02-02 11:30 | NUR ---
PT BLOOD SUGAR IS 229. PRN INSULIN WILL BE ADMINISTERED PRESCRIBED PER MD ORDER WITH NEXT MEAL. SAFETY MEASURES IN PLACE. WILL CONTINUE TO MONITOR
[2020-02-02] MEDS: REMDESIVIR (EUA) 100 MG in NACL 0.9% 100 ML IV SCH (12:01)
[2020-02-02] MEDS: ACETAMINOPHEN 325 MG TAB PO PRN (12:02)
--- NOTE | 2020-02-02 12:19 | NUR ---
ADMINISTERED SCHED MED PRESCRIBED PER MD ORDER. PT TOLERATED WELL. MEDICATION EDUCATION PERFORMED. PT VERBALIZED UNDERSTANDING. SAFETY MEASURES IN PLACE. WILL CONTINUE TO MONITOR
--- NOTE | 2020-02-02 14:04 | NUR ---
HOURLY ROUNDING. PT RESTING IN BED. ABLE TO MAKE NEEDS KNOWN. RESPIRATIONS EVEN AND UNLABORED WITH NO SOB OR RESPIRATORY DISTRESS. SKIN WARM AND DRY TO TOUCH. SAFETY MEASURES IN PLACE. WILL CONTINUE TO MONITOR
--- NOTE | 2020-02-02 15:45 | NUR ---
PT SAID THAT HER IV CAME OUT AND NEEDS A NEW ONE. NEW IV PLACED IN ICE RESURFACING MACHINE OPERATORS 22G IS CLEAN, DRY, AND INTACT. SAFETY MEASURES IN PLACE. WILL CONTINUE TO MONITOR
[2020-02-02 16:00] VITALS: BP 140/67
--- NOTE | 2020-02-02 16:30 | NUR ---
PT BLOOD SUGAR IS 301. PRN INSULIN WILL BE ADMINISTERED PRESCRIBED PER MD ORDER WITH NEXT MEAL. SAFETY MEASURES IN PLACE. WILL CONTINUE TO MONITOR
--- NOTE | 2020-02-02 18:30 | NUR ---
ADMINISTERED SCHED MED PRESCRIBED PER MD ORDER. PT TOLERATED WELL. MEDICATION EDUCATION PERFORMED. PT VERBALIZED UNDERSTANDING. SAFETY MEASURES IN PLACE. WILL CONTINUE TO MONITOR
--- NOTE | 2020-02-02 19:20 | NUR ---
ENDORSED TO NIGHTSHIFT NURSE FOR CONTINUITY OF CARE. PT IS STABLE
--- NOTE | 2020-02-02 19:25 | NUR ---
RECEIVED PATIENT FROM AM SHIFT NURSE FOR CONTINUITY OF CARE. AAOX4. RESPIRATIONS EVEN, UNLABORED. CONTINUES ON O2 2L VIA NC, O2SAT 95%. SKIN WARM, DRY. SALINE LOCK TO RIGHT FOREARM 22G PATENT/INTACT. NO C/O PAIN. NO S/S ACUTE DISTRESS. ABDOMEN SOFT, NONTENDER, NONDISTENDED. BOWEL SOUNDS ACTIVE X4 QUADRANTS. PATIENT CONTINENT OF B/B. PLAN OF CARE DISCUSSED. CALL LIGHT WITHIN REACH. SAFETY PRECAUTIONS IN PLACE. ISOLATION PRECAUTIONS OBSERVED BY ALL STAFF.
--- NOTE | 2020-02-02 21:00 | NUR ---
DUE MEDS GIVEN. NO C/O PAIN. NO S/S ACUTE DISTRESS. CALL LIGHT WITHIN REACH. SAFETY PRECAUTIONS IN PLACE. ISOLATION PRECAUTIONS OBSERVED BY ALL STAFF.
--- NOTE | 2020-02-02 23:00 | NUR ---
PATIENT RESTING COMFORTABLY IN BED. NO C/O PAIN. NO S/S ACUTE DISTRESS. CALL LIGHT WITHIN REACH. SAFETY PRECAUTIONS IN PLACE. ISOLATION PRECAUTIONS OBSERVED BY ALL STAFF.
--- NOTE | 2020-02-03 01:00 | NUR ---
PATIENT RESTING COMFORTABLY IN BED. NO C/O PAIN. NO S/S ACUTE DISTRESS. CALL LIGHT WITHIN REACH. ISOLATION PRECAUTIONS OBSERVED.
--- NOTE | 2020-02-03 03:28 | NUR ---
MADE ROUNDS. PATIENT IS ASLEEP. NO S/S ACUTE DISTRESS. CALL LIGHT WITHIN REACH. ISOLATION PRECAUTIONS OBSERVED.
[2020-02-03 04:00] VITALS: BP 159/64
--- NOTE | 2020-02-03 05:03 | NUR ---
PATIENT RESTING COMFORTABLY IN BED. NO S/S ACUTE DISTRESS. CALL LIGHT WITHIN REACH. SAFETY PRECAUTIONS IN PLACE. ISOLATION PRECAUTIONS OBSERVED BY ALL STAFF.
[2020-02-03] MEDS: INSULIN LISPRO SLIDING SCALE 100 UNITS/ML VIAL SUBQ PRN ×4 (05:51→22:25)
[2020-02-03] MEDS: BLOOD GLUCOSE MONITORING 1 DEV DEV FS SCH ×4 (06:59→21:00)
--- NOTE | 2020-02-03 07:20 | NUR ---
ENDORSED TO AM SHIFT NURSE FOR CONTINUITY OF CARE.
--- NOTE | 2020-02-03 07:25 | NUR ---
RECEIVED PT FROM KINDERGARTEN ASSISTANT NURSE, 22G IV TO RFA SALINE LOCK, NC 2L, PT IS RESTING IN BED, CONTINENT, SAFETY AND FALL PRECAUTIONS IN PLACE, WILL CONTINUE TO MONITOR.
[2020-02-03 08:00] VITALS: BP 125/63
[2020-02-03 08:11] LABS: BASOPHILS % (AUTO) 0.4 % (0.0-2.0); EOSINOPHILS % (AUTO) 0.3 % (0.0-4.0); HEMATOCRIT 43.8 % (36-48); HEMOGLOBIN 14.7 g/dL (12.0-16.0); LYMPHOCYTES # (AUTO) 1.3 K/uL (2.5-16.5); LYMPHOCYTES % (AUTO) 16.6 % (20.5-51.1); MEAN CORPUSCULAR HEMOGLOBIN 29 pg (27-31); MEAN CORPUSCULAR HGB CONC 34 g/dL (33-37); MEAN CORPUSCULAR VOLUME 87.1 fL (80-94); MONOCYTES # (AUTO) 0.7 K/uL (0.8-1.0); MONOCYTES % (AUTO) 9.4 % (1.7-9.3); NEUTROPHILS # (AUTO) 5.7 K/uL (1.8-7.7); NEUTROPHILS % (AUTO) 73.3 % (42.2-75.2); PLATELET COUNT (AUTO) 285 K/uL (140-450); RED BLOOD CELL COUNT(AUTO) 5.03 MIL/uL (4.20-5.40); RED CELL DISTRIBUTION WIDTH 13.8 % (11.6-13.7); WHITE BLOOD COUNT (AUTO) 7.8 K/uL (4.8-10.8)
[2020-02-03 09:33] LABS: ALBUMIN 2.4 g/dL (3.4-5.0); ANION GAP 10.9 (8-16); CARBON DIOXIDE 30.8 mmol/L (21-32); CREATININE 0.5 mg/dL (0.6-1.3); POTASSIUM 3.7 mmol/L (3.5-5.1); TOTAL BILIRUBIN 0.5 mg/dL (0.0-1.0)
[2020-02-03] MEDS: DOCUSATE SODIUM 100 MG GELCAP PO SCH (10:42)
[2020-02-03] MEDS: lisinopriL 20 MG TAB PO SCH (10:42)
[2020-02-03] MEDS: DEXAMETHASONE 4 MG/ML VIAL IVP SCH (10:43)
[2020-02-03] MEDS: ENOXAPARIN 40 MG/0.4 ML SYR SUBQ SCH (10:44)
--- NOTE | 2020-02-03 10:44 | NUR ---
PT WAS GIVEN THE SCHEDULED AM MEDICATIONS, PARAMETERS CHECKED AND TOLERATED, WILL CONTINUE TO MONITOR PT.
[2020-02-03] MEDS: ONDANSETRON 4 MG/2 ML VIAL IVP PRN (11:01)
--- NOTE | 2020-02-03 11:31 | NUR ---
DISCHARGE PLANNING: JODI FAXED PHYSICIAN'S ORDERS FOR HOME O2 TO [facility] AND CONFIRMED WITH FRED THAT ORDER WAS RECEIVED. FRED REFERRED SW TO [facility]. JODI FAXED CLINICALS TO [facility] AND SPOKE TO GLORIA [phone]. PER GLORIA, O2 WILL TAKE 2 HOURS TO ARRIVE. NO FURTHER NEEDS IDENTIFIED. Addendum: 02/03/20 at 1244 by Bong KATZ JODI WAS CONTACTED BY ANNABELLA IBARRA. AUTHORIZATION PROVIDED FOR HOME O2: [id number] Addendum: 02/03/20 at 1403 by Bong KATZ JODI CONTACTED [facility] REGARDING O2. PER GLORIA, O2 IS IN TRANSIT. Addendum: 02/03/20 at 1555 by Bong Cordova SS SW CONTACTED PATIENT'S SON CHERI WHO CONFIRMED THAT HOME O2 WAS RECEIVED.
[2020-02-03 12:00] VITALS: BP 114/65
--- NOTE | 2020-02-03 12:15 | NUR ---
PT IS RESTING NOW AND NO SIGN OF DISTRESS NOTED, WILL MONITOR PT.
[2020-02-03] MEDS: REMDESIVIR (EUA) 100 MG in NACL 0.9% 100 ML IV SCH (12:41)
--- NOTE | 2020-02-03 12:41 | NUR ---
PT WAS GIVEN IVPB MEDICATION NOW.
--- NOTE | 2020-02-03 13:01 | NUR ---
PT IS RESTING IN BED, NO SIGNS OF DISTRESS NOTED, REMDESIVIR WAS ADMINISTERED NOW, PT STATES HER NAUSEA HAS IMPROVED,WILL CONTINUE TO MONITOR.
--- NOTE | 2020-02-03 17:13 | NUR ---
PT WAS GIVEN INSULIN 8 UNITS ON THE LEFT UA FOR BLOOD GLUCOSE OF 309
--- NOTE | 2020-02-03 19:30 | NUR ---
RECEIVED BEDSIDE REPORT FROM DAY SHIFT NURSE. PATIENT IS ALERT AND ORIENTED X4. RESPIRATIONS EVEN AND UNLABORED. ON 2L NC SATING AT 95%. NO DISTRESS IS NOTED. SKIN IS INTACT WITH A 20 G IV SALINE LOCK ON THE RFA. IV IS PATENT AND INTACT. PLAN OF CARE WAS DISCUSSED. SAFETY PRECAUTIONS IN PLACE. BED IN LOW POSITION AND CALL LIGHT WITHIN REACH. WILL CONTINUE TO MONITOR.
--- NOTE | 2020-02-03 19:50 | NUR ---
ENDORSED PT TO LEAF SUCKER OPERATOR NURSE FOR CONTINUITY OF CARE.
[2020-02-03 20:00] VITALS: BP 128/62
--- NOTE | 2020-02-03 21:00 | NUR ---
BLOOD GLUCOSE CHECK IS 297. INSULIN COVERAGE NEEDED. ADMINISTERED 6 UNITS OF INSULIN SQ.
--- NOTE | 2020-02-03 21:01 | NUR ---
ALL SCHEDULE MEDS WERE GIVEN. PATIENT IS STABLE AND DENIES ANY PAIN. NO RESPIRATORY DISTRESS IS NOTED. WILL CONTINUE TO MONITOR.
--- NOTE | 2020-02-04 00:40 | NUR ---
CHECKED ON PATIENT. PATIENT IS ASLEEP. NO RESPIRATORY DISTRESS NOTED. ON 2L NC AND O2 SATURATION IS AT 92%. WILL CONTINUE TO MONITOR.
--- NOTE | 2020-02-04 02:00 | NUR ---
CHECKED ON PATIENT. PATIENT IS ASLEEP. NO RESPIRATORY DISTRESS NOTED. ON 2L NC AND O2 SATURATION IS AT 90%. WILL CONTINUE TO MONITOR.
[2020-02-04 04:00] VITALS: BP 141/51
--- NOTE | 2020-02-04 04:30 | NUR ---
CHECKED ON PATIENT. PATIENT IS SITTING ON THE EDGE OF TH BED. DENIES PAIN. NO RESPIRATORY DISTRESS NOTED. ON 2L NC AND O2 SATURATION IS AT 92%. WILL CONTINUE TO MONITOR.
--- NOTE | 2020-02-04 06:31 | NUR ---
BLOOD GLUCOSE CHECK IS 140. NO INSULIN COVERAGE NEEDED.
[2020-02-04] MEDS: BLOOD GLUCOSE MONITORING 1 DEV DEV FS SCH ×2 (07:07→12:09)
--- NOTE | 2020-02-04 07:26 | NUR ---
ENDORSED TO AM SHIFT NURSE FOR CONTINUITY OF CARE. PT IS STABLE.
[2020-02-04 07:41] LABS: ALBUMIN 2.5 g/dL (3.4-5.0); ANION GAP 10.8 (8-16); CARBON DIOXIDE 30.7 mmol/L (21-32); CREATININE 0.5 mg/dL (0.6-1.3); POTASSIUM 3.5 mmol/L (3.5-5.1); TOTAL BILIRUBIN 0.4 mg/dL (0.0-1.0)
[2020-02-04 08:00] VITALS: BP 135/65
[2020-02-04] MEDS ORDERED: OMEP20TC12 PO (08:02)
[2020-02-04] MEDS ORDERED: DEC4 PO (08:02)
[2020-02-04] MEDS ORDERED: APIX2.5 PO (08:02)
[2020-02-04] MEDS: DEXAMETHASONE 4 MG/ML VIAL IVP SCH (08:12)
[2020-02-04] MEDS: DOCUSATE SODIUM 100 MG GELCAP PO SCH (08:12)
[2020-02-04] MEDS: lisinopriL 20 MG TAB PO SCH (08:12)
[2020-02-04] MEDS: ENOXAPARIN 40 MG/0.4 ML SYR SUBQ SCH (08:13)
[2020-02-04] MEDS: INSULIN LISPRO SLIDING SCALE 100 UNITS/ML VIAL SUBQ PRN (12:12)
[2020-02-04] MEDS: REMDESIVIR (EUA) 100 MG in NACL 0.9% 100 ML IV SCH (12:15)
[2020-02-04 14:40] VITALS: BP 135/65
--- NOTE | 2020-02-04 15:15 | NUR ---
Spoke to son Ashkan on the phone and confirmed O2 supplies are at home. Instructed Ashkan to bring portable O2 to hospital when picking up patient. Son able to repeat back instructions.
--- NOTE | 2020-02-04 16:00 | NUR ---
Written and verbal discharge instructions provided to patient: -discharge meds Eliquis - side effect of bleeding; dexamethasone - side effects high blood sugar and GI discomfort, take med with food; omeprazole - side effect nausea and headache. -continue self-quarantine at home for COVID-19 droplet precautions for at least 14days -use O2 @ 2Lpm via n/c as needed for shortness of breath, continue breathing exercises at home -f/u with primary care physician in 3-5days Patient verbalized understanding and able to repeat back instructions. IV discontinued, cannula intact.
--- NOTE | 2020-02-04 16:20 | NUR ---
Patient discharged at this time. Left unit via wheelchair, pt aaox4, no respiratory distress on O2 @ 2Lpm via n/c. Patient's son Ashkan at [facility] to transport patient home. All belongings with patient upon departure.
== END 2020-02-04 16:20 | disposition home or self-care (01) | DRG 720 ==
LOC: MED 14:10 → MTU 16:49 → MMU 19:32
PROVIDERS: ADMIT Hospitalist; ATTEND Hospitalist
PROC: XW033E5 Introduction of Remdesivir Anti-infective into Peripheral Vein, Percutaneous Approach, New Technology Group 5 (ICD-10-PCS; principal; 2020-02-04)
DX: A41.9 Sepsis, unspecified organism (principal); U07.1 COVID-19; J12.89 Other viral pneumonia; J96.01 Acute respiratory failure with hypoxia; E11.9 Type 2 diabetes mellitus without complications; I10 Essential (primary) hypertension; Z88.0 Allergy status to penicillin; Z88.8 Allergy status to other drugs, medicaments and biological substances; Z90.49 Acquired absence of other specified parts of digestive tract
CPT/HCPCS: 36415; 71045; 80053; 81003; 82948; 83605; 83735; 83880; 84484; 85025; 86886; 86900; 86901; 87040; 87081; 87086; 93005; 96365; 96375; 99285; J1100; J1650; J1885; J1956; J2270; J2405; U0003